=== PATIENT | male | born 1985 | race Caucasian/White ===

== ENCOUNTER 2016-12-16 17:10 | Emergency (ER) | payer OTHER | END 2016-12-16 19:45 | disposition home or self-care (01) | LOC: ER1 17:10 | DX: L03.113 Cellulitis of right upper limb (principal); F17.200 Nicotine dependence, unspecified, uncomplicated | CPT/HCPCS: 99283 ==

== ENCOUNTER 2016-12-22 14:46 | Emergency (ER) | payer OTHER | END 2016-12-22 22:54 | disposition home or self-care (01) | LOC: ER1 14:46 | DX: L02.413 Cutaneous abscess of right upper limb (principal); F17.210 Nicotine dependence, cigarettes, uncomplicated | CPT/HCPCS: 10061; 99283 ==